=== PATIENT | female | born 1955 | race Caucasian/White ===

== ENCOUNTER 2020-12-23 11:15 | Outpatient (RCR) | payer MEDICARE, OTHER, SELFPAY ==
[2020-12-23] MEDS: COVID-19 VACC, MRNA(PFIZER)/PF 30 MCG/0.3 ML SYRINGE IM (09:12)
[2021-01-13] MEDS: COVID-19 VACC, MRNA(PFIZER)/PF 30 MCG/0.3 ML SYRINGE IM (09:04)
== END 2021-03-29 23:59 ==
LOC: IMMUN 11:15
PROVIDERS: PCP Preventive Medicine Occupational Medicine; Referring Provider Family Medicine; Visit Provider Family Medicine
DX: Z23 Encounter for immunization (principal)
CPT/HCPCS: 0001A; 0002A; 91300

== ENCOUNTER → 2022-05-20 | Outpatient (CLI) | payer MEDICARE, OTHER, SELFPAY | END | disposition home or self-care (01) | LOC: LABSPEC 10:15 | PROVIDERS: PCP Preventive Medicine Occupational Medicine; Visit Provider Otolaryngology | DX: J32.9 Chronic sinusitis, unspecified (principal) | CPT/HCPCS: 87070; 87077; 87205 ==

== ENCOUNTER → 2022-08-14 | Outpatient (CLI) | payer MEDICARE, OTHER, SELFPAY ==
--- NOTE | 2022-08-15 05:50 | PFTCOMP_ITS ---
COMPLETE PULMONARY FUNCTION TEST INTERPRETATION Brief HPI: Patient is a 67-year-old female, currently under the care of Dr. Huynh, who presents to [facility] for complete pulmonary function tests secondary to diagnosis of chronic cough. Respiratory therapist reports good effort and reproducible results. Interpretation: Forced expiration spirometry shows no large airways obstructive ventilatory defect with an FEV1 of 110% predicted. There is no significant bronchodilator response by strict ATS criteria. Spirograms are of good quality and plateau normally. The respiratory flow volume loop shows a normal pattern. Lung volumes by body plethysmography show a normal total lung capacity at 5.11 L, 115% predicted. All other lung volumes are within normal limits. Diffusion capacity by carbon monoxide is normal at 100% predicted. The airway resistance is normal. No previous pulmonary function tests were available for review. Impression: These pulmonary function tests are within normal limits
== END | disposition home or self-care (01) ==
LOC: PSN 10:29
PROVIDERS: PCP Preventive Medicine Occupational Medicine; Referring Provider Internal Medicine Critical Care Medicine; Visit Provider Internal Medicine Critical Care Medicine
DX: R05.3 Chronic cough (principal)
CPT/HCPCS: 94060; 94726; 94729

== ENCOUNTER → 2022-10-04 | Outpatient (CLI) | payer MEDICARE, OTHER, SELFPAY ==
--- NOTE | 2022-10-04 08:30 | PET_ITS ---
EXAMINATION: FDG PET-CT INDICATIONS: A 67-year-old female with history of pulmonary nodularity. COMPARISON EXAMINATION: None available INDEX LESION SIZE SUV INTERPRETATION Right upper lung, right upper lobe 1.2 (max) Quantitative criteria for viable neoplasm are not fulfilled, sequential radiologic investigation recommended TECHNIQUE: Following the intravenous administration of 12.94 mCi of F-18 deoxyglucose via the left antecubital fossa, multiplanar image acquisitions of the neck, chest, abdomen and pelvis to level of mid thigh, obtained at one hour post radiopharmaceutical administration contemporaneously interpreted with the current CT of the neck, chest, abdomen and pelvis, to level of mid thigh, dated 10/04/22 via coregistration reveals: BLOOD GLUCOSE LEVEL:?? 101 mg/dl?HEIGHT:?63 inches?WEIGHT: 165 lbs. FINDINGS: Head/Neck: There is no evidence of abnormal increased glucose metabolism in the pharyngeal mucosal space, parapharyngeal space, bilateral-lateral and anterior neck, hypopharynx and distribution of the laryngeal structures. The visualized portion of the cerebral cortical-subcortical structures demonstrate symmetric and preserved glucose metabolism. CHEST: Mild increased FDG concentration is defined in the right upper medial lung field, right upper lobe. The calculated maximal standard uptake value is 1.2. Prominent tracer concentration is noted in the descending thoracic aorta commensurate with activated leukocytes associated with atherosclerotic plaque formation. Pertinent chest CT findings are as follows. Bilateral axillary soft tissue densities with fatty hilus are non-glucose avid. There is atherosclerotic calcification defined in the thoracic aorta without evidence of dilatation-aneurysm formation. There are no additional parenchymal densities-nodules defined in the right and left hemithorax with quantitatively significant increased FDG uptake. Abdomen/Pelvis: Normal physiologic distribution of the radiopharmaceutical is apparent in the hepatic (3.8) and splenic parenchyma, both renal units, bladder and visualized intestinal tract. Diffuse radiopharmaceutical concentration is noted in all four quadrants of the abdomen and pelvis. Pertinent abdomen and pelvis CT findings are as follows. There is atherosclerotic calcification defined in the abdominal aorta without evidence of dilatation-aneurysm formation. Pelvic arterial calcification is observed. The uterus appears surgically absent. Subcentimeter bilateral inguinal soft tissue densities demonstrate no evidence of quantitatively significant increased FDG uptake. Skeletal: There are no well-defined sclerotic-lytic changes manifest on review of the appendicular-axial skeletal structures. Degenerative changes are noted in the cervical, thoracic and lumbar spine without evidence of increased radiopharmaceutical concentration. PET/PET/CT Tumor Base -Thigh Init IMPRESSION: 1. NEGATIVE EXAMINATION. There is no definitive quantitative scintigraphic evidence of viable neoplasm. 2. Metabolic, morphologic stability may be ensured in the right upper hemithorax parenchymal density with repeat FDG PET-CT imaging and/or CT of the chest in 3-6 months if clinically indicated. Electronic Signature Triston Vásquez D.O. Accurate Quantification of SUVs for this report are calculated using the exclusive [employer]. ([place]. Patent No. [id number] B2 [phone] [place] patent [phone]). Standardization and correction of the FDG SUV metric via [employer] technology allow for vendor non-specific objective quantitative examination comparison and optimization of the sensitivity and specificity of the FDG PET-CT examination. Electronically Signed: Triston Vásquez, at 23:04 EST ,
== END | disposition home or self-care (01) ==
LOC: ONC 08:09
PROVIDERS: PCP Preventive Medicine Occupational Medicine; Referring Provider Nurse Practitioner Acute Care; Visit Provider Nurse Practitioner Acute Care
DX: R91.8 Other nonspecific abnormal finding of lung field (principal)
CPT/HCPCS: 78815; A9552

== ENCOUNTER → 2022-12-22 | Outpatient (CLI) | payer MEDICARE, OTHER, SELFPAY ==
--- NOTE | 2022-12-22 13:56 | CT_ITS ---
STUDY: CT CHEST WITHOUT CONTRAST REASON FOR EXAM: Female, 67 years old. Mass follow up RADIATION DOSAGE (If Supplied By Facility): CTDIvol = ( 9.38 ) mGy, DLP = ( 279.34 ) mGycm TECHNIQUE: Transaxial imaging was performed without the administration of intravenous contrast material. Multiplanar coronal and sagittal images were reformatted. Individualized dose optimization techniques were used for this CT. COMPARISON: Comparison is made with prior PET scan dated October 04, 2022. FINDINGS: CHEST There is a 1.4 cm x 1.1 cm noncalcified nodule in the medial aspect of the right upper lobe as seen on axial image #35. There is no demonstrated pleural abnormality. There are calcifications of the coronary arteries. There are multiple small lymph nodes within the mediastinum, which are normal in size and morphology most compatible with reactive lymph hyperplasia. Normal hilar regions. Normal unenhanced pulmonary arteries. There is atherosclerotic calcification of the aortic arch. There are multi-level degenerative changes of the thoracic spine. There is no demonstrated abnormality of the visualized upper abdomen. CT/Chest without Contrast IMPRESSION: 1.4 cm x 1.17 noncalcified nodule in the medial aspect of the right upper lobe. On the prior PET scan, this was not FDG avid. A repeat CT scan in 3 months is recommended. Electronically Signed: Cristino England MD at 15:13 EST ,
== END | disposition home or self-care (01) ==
LOC: CT 13:49
PROVIDERS: PCP Preventive Medicine Occupational Medicine; Referring Provider Nurse Practitioner Acute Care; Visit Provider Nurse Practitioner Acute Care
DX: R91.8 Other nonspecific abnormal finding of lung field (principal)
CPT/HCPCS: 71250

== ENCOUNTER → 2023-07-09 | Outpatient (CLI) | payer MEDICARE, OTHER, SELFPAY ==
--- NOTE | 2023-07-09 13:03 | CT_ITS ---
INDICATION: Lung Nodule EXAMINATION: CT CHEST WITHOUT CONTRAST - CT Chest W/O Contrast Injection TECHNIQUE: Helically acquired images were obtained of the chest. A radiation dose optimization technique was used for this scan. IV Contrast dosage and agent: None. RADIATION DOSAGE (If Supplied By Facility): CTDIvol = ( 6.55 ) mGy, DLP = ( 231.56 ) mGycm COMPARISON: Prior examination of 12/22/2022. FINDINGS: LUNGS, PLEURA AND LARGE AIRWAYS: 1.6 x 1.1 x 2 cm lobulated mass in the right upper lobe unchanged or slightly larger in size since previous examination. Previously measured 1.6 x 1.1 x 1.5 cm. No pleural effusion or thickening. No pneumothorax. THYROID: No thyroid lesions. HEART AND PERICARDIUM: Heart size is normal. No pericardial effusion. CORONARY ARTERIES: Mild calcifications. VESSELS: Thoracic aorta is not dilated. MEDIASTINUM AND TOÑO: Few small normal-sized mediastinal nodes unchanged. No evidence of adenopathy. Esophagus is unremarkable. No hiatal hernia. UPPER ABDOMEN: No acute pathology. BONES: Degenerative changes of the spine. CT/Chest without Contrast IMPRESSION: Persistent right upper lobe nodule unchanged or slightly larger in size than the previous examination. Malignancy cannot be excluded. Correlation with repeat PET scan is recommended. Otherwise follow-up examination in 3 months. Electronically Signed: Cesar Almanza MD at 16:09 EDT ,
== END | disposition home or self-care (01) ==
LOC: CT 13:02
PROVIDERS: PCP Preventive Medicine Occupational Medicine; Referring Provider Internal Medicine Critical Care Medicine; Visit Provider Internal Medicine Critical Care Medicine
DX: R91.1 Solitary pulmonary nodule (principal)
CPT/HCPCS: 71250

== ENCOUNTER → 2023-07-31 | Outpatient (CLI) | payer MEDICARE, OTHER, SELFPAY ==
[2023-07-31 09:45] LABS: Platelet Count 269 K/mm3 (150-450)
[2023-07-31 10:01] LABS: Prothrombin Time (Protime)PT. 12.8 SECONDS (11.7-14.9)
== END | disposition home or self-care (01) ==
LOC: LAB 08:58
PROVIDERS: PCP Preventive Medicine Occupational Medicine; Referring Provider Nurse Practitioner Acute Care; Visit Provider Nurse Practitioner Acute Care
DX: I48.91 Unspecified atrial fibrillation (principal); R05.3 Chronic cough; R06.00 Dyspnea, unspecified
CPT/HCPCS: 36415; 85049; 85610; 85730

== ENCOUNTER → 2023-08-14 | Outpatient (CLI) | payer MEDICARE, OTHER, SELFPAY ==
[2023-08-14] VITALS (11 sets, daily range): BP systolic 109–190; BP diastolic 53–97; PULSE 54–84; RESP 12–18; TEMP 36.8; O2SAT 91–98; BMI 28.9
--- NOTE | 2023-08-14 08:10 | CT_ITS ---
PROCEDURE: CT GUIDED CORE NEEDLE BIOPSY OF A right upper lobe LUNG LESION INDICATION: Female, 68 years old. RUST PHYSICIAN: Dr. Tomás Croft CONSENT: Written informed consent was obtained having explained the risks, benefits and alternatives in detail with the patient who accepted the risks and agreed to proceed. Laboratory review and clinical assessment was performed. CONSCIOUS SEDATION PROTOCOL: The Drugs used were: 2 mg Versed, IV., and 50 mcg Fentanyl, IV. The sedation time was: 15 minutes. The conscious sedation protocol was independently monitored. RADIATION DOSAGE (If Supplied By Facility): CTDIvol = ( 20 ) mGy, DLP = ( 327.18 ) mGycm Individualized dose optimization techniques were used for this CT. TECHNIQUE: The patient was placed in the prone position. A noncontrast CT was performed to localize the lesion in the right upper . The skin surface was prepped and draped in a sterile fashion. 1% lidocaine was used for local anesthesia. Using CT guidance, a 20-gauge coaxial biopsy device was advanced to the periphery of the lesion. A total of 4 core specimens were obtained. The specimens were placed in a formalin solution. A post procedure CT demonstrated no adverse sequelae or pneumothorax. The patient tolerated the procedure well without adverse event. A negative biopsy does not exclude malignancy. Further imaging or clinical followup based on patient condition and degree of clinical suspicion for malignancy. Suggest rebiopsy, if biopsy results do not match with clinical scenario. CT/Biopsy/Inj or Needle Placement IMPRESSION: 1. CT directed core needle biopsy of the right upper lobe pulmonary nodule using CT image guidance with image documentation as described. Pathology results are pending. 2. Conscious Sedation protocol utilized with independent monitoring. Electronically Signed: Cristino England MD at 10:27 EDT ,
[2023-08-14 08:22] LABS: Absolute Lymphocyte Count 2.13 X10^3/uL (0.83-4.51); Absolute Neutrophil Count 3.6 X10^3/uL (2.0-7.7); Basophil# 0.05 X10^3/uL; Basophil% 0.7 % (0-1); Eosinophil# 0.37 X10^3/uL; Eosinophils% 5.4 % (0-5); Hematocrit 43.7 % (37-47); Hemoglobin 14.3 g/dL (12.0-15.0); Lymphocyte # 2.13 X10^3/ul (0.83-4.51); Lymphocyte % 31.3 % (19-41); Mean Corp Hgb Conc 32.7 g/dL (32-36); Mean Corpuscular Hgb 29.7 pg (27.0-32.0); Mean Corpuscular Volume 90.7 fL (81-99); Mean Platelet Vol. 9.9 fl (6.2-12.0); Monocyte# 0.62 X10^3/uL; Monocyte% 9.1 % (0-10); NRBC Flagged by Analyzer 0 % (0-5); Neutrophil # 3.62 X10^3/uL (2.7-7.7); Neutrophil % 53.2 % (47-70); Platelet Count 222 K/mm3 (150-450); RBC Distribution Width CV 13.5 % (11.6-14.6); RBC Distribution Width SD 45.2 fl (35.1-43.9); Red Blood Count 4.82 M/mm3 (4.2-5.4); White Blood Count 6.8 K/mm3 (4.4-11.0)
[2023-08-14 08:30] LABS: International Normalized Ratio 0.9; Prothrombin Time (Protime)PT. 12.5 SECONDS (11.7-14.9)
[2023-08-14] MEDS: 0.9% Normal Saline (250mL Bag) 250 ML 15 ML IV (09:08)
[2023-08-14] MEDS: Midazolam 2 MG/2 ML Syringe IV (09:08)
[2023-08-14] MEDS: fentaNYL 100 MCG/2 ML Ampul IV (09:10)
[2023-08-14] MEDS: Lidocaine 2% (20 ml mdv) 20 ML Vial INFILT (09:18)
--- NOTE | 2023-08-14 09:44 | ASPIGT_PTH ---
PATIENT: WENDI WAGNER LOC: CT U#:[id number] AGE/SX: 68/F ROOM: RE08/14/[address]: SHILA Jensen : 1955 BED: DIS: 08/14/2023 SPEC #: [id number] RECD: 08/14/23 09:44 STATUS: REVA RELynne #: [id number] ANGIE: 08/14/23 09:[address]: Yola Qureshi NP DEPT: SURGICAL PATHOLOGY RECD BY: Evelyn Pittman ENTERED: 08/14/23 09:45 SP TYPE: ASP RAD OTHR DR: MD Dr. Darrick Knutson DO Tissues: Lung, NOS Procedures: FNA Specimen Adequacy Special Stain Group II Surgery Specimen Level IV Imprint (control) HEADER OPERATION: Right lung mass, CT-guided core biopsy PRE-OP DIAGNOSIS: Right lung mass TISSUE SUBMITTED: Right lung mass 20-gauge core x4 MICROSCOPIC DIAGNOSIS Right lung mass, CT-guided core biopsy: Negative for malignancy. See comment. IVET:[email or web address] 08/15/2023 COMMENT The specimen is evaluated at the time of biopsy by Dr. Solorio. Immediate Evaluation = Negative for malignant cells. Correlation with clinical, radiologic findings and appropriate follow up are necessary. Re-biopsy is suggested if clinically indicated. Case has been reviewed in consultation with Dr. Camacho who concurs with the above diagnosis. IDC:AM MICROSCOPIC DESCRIPTION Slides are reviewed. GROSS DESCRIPTION Received in fixative is one container labeled with the patient's name and designated right upper lobe lung biopsy. The specimen consists of multiple irregular fragments of lowe soft tissue that in aggregate measure 0.5 x 0.1 x <0.1 cm. The specimen is totally submitted in one cassette. Two touch imprints are prepared at the time of core biopsy. / Vero 08/14/2023 TC:5 CPT: 97559, [id number]
--- NOTE | 2023-08-14 09:45 | RAD_ITS ---
STUDY: X-RAY CHEST REASON FOR EXAM: Female, 68 years old. Post lung biopsy immediate -- Immediately post lung biopsy TECHNIQUE: AP inspiration and expiration views COMPARISON: None. FINDINGS: No evidence of pneumothorax on the immediate post right lung biopsy radiographs. RAD/Chest Insp/Exp 2 View IMPRESSION: No evidence of pneumothorax on the immediate post right lung biopsy radiographs. Electronically Signed: Cristino England MD at 14:14 EDT ,
--- NOTE | 2023-08-14 10:27 | PCM.OP.PRO ---
Procedure Report Date of Procedure: 08/14/23 Assessment & Plan Assessment/Plan (1) Lung mass: PLAN: PROCEDURE: CT GUIDED CORE NEEDLE LUNG BIOPSY ORDERING PROVIDER: Yola Qureshi CNP INDICATION: Female, 68 years old. Right upper lobe mass. PROVIDER: ILEANA Crawley CONSENT: Written informed consent was obtained having explained the risks, benefits and alternatives in detail with the patient who accepted the risks and agreed to proceed. Laboratory review and clinical assessment was performed. PRE-PROCEDURE SEDATION ASSESSMENT: Current history and physical dictated by referring physician and reviewed. No clinical changes since date of exam. Patient has an ASA Class of 1. PROCEDURAL SEDATION PROTOCOL: The Drugs used were: 2 mg Versed, IV, and 50 mcg Fentanyl, IV. The sedation time was: 27 minutes, starting at 0908 and terminated at 0935. The procedural sedation protocol was independently monitored by the department nurse. RADIATION DOSAGE (If Supplied By Facility): CTDIvol = 232.72 mGy, DLP = 327.18 mGycm Individualized dose optimization techniques were used for this CT. TECHNIQUE: The patient was placed in a prone position. A noncontrast CT was performed to localize the lesion in the right upper lobe. The skin surface was prepped and draped in a sterile fashion. 2% lidocaine was used for local anesthesia. Using CT guidance, a 20-gauge coaxial biopsy device was advanced to the periphery of the lesion. A total of 4 core specimens were obtained. Specimens were microscopically reviewed by pathology in the CT suite and placed in formalin solution. The biopsy needle was removed. A sterile occlusive dressing was applied to the biopsy site. The patient tolerated the procedure well. An immediate chest xray was ordered, per protocol. A negative biopsy does not exclude malignancy. Further imaging or clinical followup based on patient condition and degree of clinical suspicion for malignancy. Suggest rebiopsy, if biopsy results do not match with clinical scenario. IMPRESSION: 1. CT directed core needle biopsy of right upper lobe mass using CT image guidance with image documentation as described. Pathology results are pending. 2. Procedural Sedation protocol utilized with independent monitoring by the department nurse. Procedures Radiology Radiology CT Procedures: [id number] Biopsy Lung
--- NOTE | 2023-08-14 11:40 | RAD_ITS ---
STUDY: X-RAY CHEST REASON FOR EXAM: Female, 68 years old. Post lung biopsy 2 hr TECHNIQUE: AP inspiration and expiration views. COMPARISON: Comparison is made with prior study done earlier today. FINDINGS: No evidence of pneumothorax on the two-hour delayed post right lung biopsy radiographs. RAD/Chest Insp/Exp 2 View IMPRESSION: No evidence of pneumothorax on the two-hour delayed post right lung biopsy radiographs. Electronically Signed: Cristino England MD at 11:23 EDT ,
== END | disposition home or self-care (01) ==
PROVIDERS: Radiology Diagnostic Radiology; PCP Preventive Medicine Occupational Medicine; Referring Provider Nurse Practitioner Acute Care; Visit Provider Nurse Practitioner Acute Care
DX: R91.8 Other nonspecific abnormal finding of lung field (principal)
CPT/HCPCS: 32408; 36415; 71046; 77012; 85025; 85610; 85730; 88172; 88305; 88313; 99156; J7050; A4216

== ENCOUNTER → 2024-01-02 | Outpatient (CLI) | payer MEDICARE, OTHER, SELFPAY ==
--- NOTE | 2024-01-02 07:43 | CT_ITS ---
STUDY: CT CHEST WITHOUT CONTRAST REASON FOR EXAM: Female, 68 years old. Lung mass RADIATION DOSAGE (If Supplied By Facility): CTDIvol = ( 7.98 ) mGy, DLP = ( 311.65 ) mGycm TECHNIQUE: Transaxial imaging was performed without the administration of intravenous contrast material. Multiplanar coronal and sagittal images were reformatted. Individualized dose optimization techniques were used for this CT. COMPARISON: Comparison is made with prior study dated July 09, 2023. FINDINGS: CHEST There is a stable 1.6 cm x 1 cm mildly lobulated nodule in the medial anterior right upper lobe as seen on axial image #33 and coronal image #62. There is no demonstrated pleural abnormality. There are calcifications of the coronary arteries. Normal mediastinum. Normal hilar regions. Normal unenhanced pulmonary arteries. There is atherosclerotic calcification of the aortic arch. There are degenerative changes of the thoracic spine. There is no demonstrated abnormality of the visualized upper abdomen. CT/Chest without Contrast IMPRESSION: Stable examination demonstrating a 1.6 cm x 1 cm lobulated nodule in the medial anterior right upper lobe. Electronically Signed: Cristino England MD at 14:54 EDT ,
--- OUTSIDE RECORDS SUMMARY | 2024-01-02 08:01 | XMS RPT_ITS | CCD ---
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 Name Role Phone OZ GALEANO DO Primary Care Physician [phone] OZ GALEANO DO Primary Care Unavailable OZ GALEANO DO Attending Unavailable OZ GALEANO DO Attending Unavailable OZ GALEANO DO Primary Care Unavailable Allergies Allergy Classification Reported Allergen(s) Allergy Type Date of Onset Reaction(s) Facility (7 sources) Alendronate; Translations: [alendronate] Drug Allergy Muscle pain (finding) [facility] Work Phone: Medications Current Medications Medication Drug Class(es) Dates Sig (Normalized) Sig (Original) Advair HFA 230 mcg-21 mcg/inh inhalation aerosol (2 sources) Start: 09-11-2022 take 2 puff(s) by inhalation twice daily Advair HFA 230 mcg-21 mcg/inh inhalation aerosol 2 PUFF INHALED TWICE A DAY Start Date: 09/11/22 Status: Ordered [id number] 200 actuat albuterol 0.09 mg/actuat metered dose inhaler (1 source) beta2-Adrenergic Agonist Start: 07-05-2022 End: 08-04-2022 take 2 puff(s) by inhalation every four hours as needed for wheezing ProAir HFA MDI (90 mcg/inh) inhalation aerosol 2 puff(s), Inhalation, q4h, PRN as needed for wheezing, # 18 gram(s), 0 Refill(s), Pharmacy: [facility]/pharmacy #[id number], COVID, 157.5, cm, 07/05/22 14:01:00 EDT, Height, kg, 07/05/22 14:01:00 EDT, Dosing Weight Start Date: 07/05/22 Stop Date: 08/04/22 Status: Ordered Albuterol (Eqv-ProAir HFA) 90 mcg/inh inhalation aerosol (1 source) Start: 05-23-2023 Albuterol (Eqv-ProAir HFA) 90 mcg/inh inhalation aerosol 0 Refill(s) Start Date: 05/23/23 Status: Ordered amoxicillin 500 mg oral capsule (1 source) Penicillin-class Antibacterial Start: 12-16-2021 End: 12-26-2021 amoxicillin 500 mg oral capsule Dose : 500 mg = 1 cap(s), Oral, TID, # 30 cap(s), 0 Refill(s) Start Date: 12/16/21 Stop Date: 12/26/21 Status: Ordered aspirin 81 mg oral tablet (7 sources) Platelet Aggregation Inhibitor, Nonsteroidal Anti-inflammatory Drug Start: 02-02-2014 aspirin 81 mg oral tablet (chewable) Dose : 81 mg = 1 tab(s), Oral, Daily, 0 Refill(s) Start Date: 02/02/14 Status: Ordered atorvastatin 10 mg oral tablet (7 sources) HMG-CoA Reductase Inhibitor Start: 11-26-2023 atorvastatin 10 mg oral tablet Dose : 10 mg = 1 tab(s), Oral, qDay, # 90 tab(s), 3 Refill(s), Pharmacy: [facility]/pharmacy #[id number], 158, cm, 09/21/23 13:55:00 EST, Height, kg, 09/21/23 13:55:00 EST, Dosing Weight Start Date: 11/26/23 Status: Ordered Completed/Discontinued Medications Medication Drug Class(es) Dates Sig (Normalized) Sig (Original) fluticasone propionate 0.05 mg/actuat metered dose nasal spray (4 sources) Corticosteroid Start: 05-25-2023 End: 06-24-2023 take 1 dose nasal route twice daily Flonase 50 mcg/inh nasal spray Dose = 1 spray(s), Nostril, each, BID, # 16 gram(s), 0 Refill(s), Pharmacy: [facility]/pharmacy #[id number], Rhinitis, 158, cm, 05/25/23 10:01:00 EDT, Height, kg, 05/25/23 10:01:00 EDT, Dosing Weight Start Date: 05/25/23 Stop Date: 06/24/23 Status: Ordered Problems Problem Classification Problem Date Documented Date Episodic/Chronic Chronic obstructive pulmonary disease and bronchiectasis (1 source) Bronchitis 09-21-2023 Episodic Disorders of lipid metabolism (7 sources) Hyperlipidemia; Translations: [Mixed hyperlipidemia] 08-30-2020 Chronic Essential hypertension (7 sources) Essential hypertension 09-15-2019 Chronic Mood disorders (7 sources) Depressive disorder 02-27-2020 Chronic Neoplasms of unspecified nature or uncertain behavior (8 sources) Neoplasm of uncertain behavior of back; Translations: [Neoplasm of uncertain behavior of skin of chest] 12-05-2021 Episodic Other bone disease and musculoskeletal deformities (7 sources) Disorder of bone 02-27-2020 Episodic Other connective tissue disease (7 sources) Primary fibromyalgia syndrome 02-27-2020 Episodic Other hereditary and degenerative nervous system conditions (7 sources) Hereditary essential tremor 12-05-2021 Chronic Other lower respiratory disease (2 sources) Chronic cough 09-11-2022 Episodic Other lower respiratory disease (3 sources) Nodule of lung 09-19-2022 Episodic Other non-traumatic joint disorders (7 sources) 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 Other screening for suspected conditions (not mental disorders or infectious disease) (2 sources) Encounter for screening mammogram for malignant neoplasm of breast; Translations: [Encounter for screening mammogram for malignant neoplasm of breast] Onset: 10-10-2023 Episodic Residual codes; unclassified (1 source) Family history of malignant neoplasm of thoracic cavity structure 12-17-2023 Episodic Unclassified (8 sources) Patient encounter status 08-30-2020 Results Test Name Value Interpretation Reference Range Facil ity Encounters Encounter Date Encounter Type Care Provider Facility Start: 12-18-2023 End: 12-18-2023 Patient encounter procedure OZ GALEANO DO [facility] Start: 10-10-2023 End: 10-11-2023 ambulatory OZ WALESKA Facility:B Start: 10-10-2023 End: 10-10-2023 Patient encounter procedure OZ GALEANO DO [facility] Start: 11-22-2022 End: 11-23-2022 ambulatory OZ GALEANO DO Facility:[facility] Start: 11-22-2022 End: 11-22-2022 Patient encounter procedure OZ WOODALLY [facility] Start: 09-13-2022 End: 09-13-2022 Patient encounter procedure MILAN WHITE MD [facility] Start: 09-11-2022 End: 09-11-2022 Patient encounter procedure MILAN WHITE MD [facility] Start: 07-27-2022 End: 07-27-2022 Patient encounter procedure OZ WOODALLMarielena CARMONA [facility] Start: 12-16-2021 End: 12-20-2021 Outreach Lab OZ GALEANO DO [facility] Procedures Date Procedure Procedure Detail Performing Clinician Colonoscopy OZ GALEANO DO Immunizations Immunization Date Immunization Notes Care Provider [facility] 07-09-2023 influenza virus vaccine, unspecified formulation OZ GALEANO DO [facility] 08-17-2022 influenza virus vaccine, unspecified formulation OZ WALESKA DO [facility] 08-17-2022 SARS-CoV-2 (CV19)[id number] bivalent vac OZ GALEANO DO [facility] 08-02-2021 SARS-CoV-2 mRNA (tozinameran) vaccine OZ GALEANO DO [facility] Payers Date Payer Category Payer Medicare [id number] 2022 Unknown [id number] 1955 Unknown [id number] 1955 Unknown [id number] Social History Date Type Detail Facility Start: 09-15-2019 Never smoked t oblilly (finding) [facility] Sex Assigned At Female [facility] Clinical Note 10-10-2023 Note Date & Type Note Facility 10-10-2023 Note ORIGINAL EXAMINATION: BONE DENSITOMETRY 10/10/2023 10:45 am TECHNIQUE: A bone density dual x-ray absorptiometry (DEXA) scan was performed of the lumbar spine and left hip on a [employer] system. COMPARISON: 03/24/2019. HISTORY: ORDERING SYSTEM PROVIDED HISTORY: Reason for Exam: Osteoporosis Screening Postmenopausal FINDINGS: LEFT HIP: The bone mineral density in the total hip is measured at 0.757 g/cm2 corresponding to a T-score of -1.5. This is within the osteopenic range by WHO criteria. Change from prior: No statistically significant change. The bone mineral density of the femoral neck is measured at 0.569 g/cm2 corresponding to a T-score of -2.5. This is within the osteoporotic range by WHO criteria. Lumbar spine: The bone mineral density of the lumbar spine, L1 through L4 is measured at 0.948 g/cm2 corresponding to a T-score of -0.9. This is within the normal range by WHO criteria. Change from prior: No statistically significant change. 10 year probability of fracture: FRAX not reported as some T-scores for the total hip, spine or femoral neck are at or below -2.5. IMPRESSION: Osteoporosis by WHO criteria. Interpreted by: Ivette Leonard Preliminary Report By: Ivette Leonard Electronically signed By Ivette Leonard Dictated Date: 10/10/2023 10:58:28 AM Prelim Date: 10/10/2023 11:01:16 AM Sign Date: 10/10/2023 11:01:16 AM Ordering Provider: OZ GALEANO [facility] Evaluation + Plan note Note Date & Type Note Facility Evaluation + Plan note Future Appointments Appointment Date:12/26/2021 02:00:00 PM Scheduled Provider: Location:[facility] Appointment Type:PC Nurse [facility] Evaluation + Plan note Note Date & Type Note Facility Evaluation + Plan note Future Appointments Appointment Date:05/17/2023 09:00:00 AM Scheduled Provider:OZ GALEANO DO Location:[facility] Appointment Type:PC OV [facility] Evaluation + Plan note Radiology Note Date & Type Note Facility Evaluation + Plan note Future Appointments Appointment Date:11/08/2023 09:00:00 AM Scheduled Provider:OZ GALEANO DO Location:[facility] Appointment Type:PC OV Future Scheduled TestsBD Bone Density DEXA Axial Skeleton 09/25/23 [facility] Evaluation + Plan note Radiology Note Date & Type Note Facility Evaluation + Plan note Future Appointments Appointment Date:06/16/2024 09:30:00 AM Scheduled Provider:OZ GALEANO DO Location:[facility] Appointment Type:PC OV Follow Up Future Scheduled TestsBD Bone Density DEXA Axial Skeleton 09/25/23 [facility] Hospital course Narrative Note Date & Type Note Facility Hospital course Narrative No data available for this section [facility] Hospital Discharge instructions Note Date & Type Note Facility Hospital Discharge instructions No data available for this section [facility] Progress note Note Date & Type Note Facility Progress note No data available for this section [facility] Summary Purpose Family History No Family History Records Found Advance Directives No Advanced Directives Records Found Additional Source Comments Care Team (unrecognized sect ion and content) Care Team Personnel Name: OZ GALEANO DO Position: P4 Physician - Primary Care Med Service: Active Provider Member Role: Primary Care Physician Address: Address: [address], [place] [address] Care Team Related Persons Name: MEL WAGNER Address: Home [address] [place], [place] [id number] Care Team Personnel Name: OZ GALEANO DO Position: P4 Physician - Primary Care Member Role: Primary Care Physician Address: Address: [address], [place] [id number] [place] [address] Care Team Related Persons Name: MEL WAGNER Address: Home [address] [place], [place] [id number] Care Team Personnel Name: OZ GALEANO DO Position: P4 Physician - Primary Care Member Role: Primary Care Physician Address: Address: [facility] [address] Care Team Related Persons Name: MEL WAGNER Address: Home [address], [place] [id number] Care Team Personnel Name: OZ GALEANO DO Position: P4 Physician - Primary Care Member Role: Primary Care Physician Address: Address: [address], [place] [id number] [place] [address] Care Team Related Persons Name: MEL WAGNER Address: Home [address] [place], [place] [id number] Patient Care team informatio n (unrecognized section and content) Care Team Personnel Name: OZ GALEANO DO Position: P4 Physician - Primary Care Member Role: Primary Care Physician Address: Address: [address] [place] [address] [place] Care Team Related Persons Name: MEL WAGNER Address: Home [address] [place], [place] [id number] Care Team Personnel Name: OZ GALEANO DO Position: P4 Physician - Primary Care Member Role: Primary Care Physician Address: Address: [facility] [address] Care Team Related Persons Name: MEL WAGNER Address: Home [address] [place], [place] [id number] INFORMATION SOURCE (unrecogn ized section and content) FOR RECORDS PERTAINING TO PATIENTS WHO ARE OR HAVE BEEN ENROLLED IN A CHEMICAL DEPENDENCY/SUBSTANCEABUSE PROGRAM, SOME INFORMATION MAY BE OMITTED. This clinical summary was aggregated from multiple sources. Caution should be exercised in using it in the provision of clinical care. This summary normalizes information from multiple sources, and as a consequence, information in this document may materially change the coding, format and clinical context of patient data. In addition, data may be omitted in some cases. CLINICAL DECISIONS SHOULD BE BASED ON THE PRIMARY CLINICAL RECORDS. [facility] [employer] [facility]. provides no warranty or guarantee of the accuracy or completeness of information in this document.
== END | disposition home or self-care (01) ==
LOC: CT 07:40
PROVIDERS: PCP Preventive Medicine Occupational Medicine; Referring Provider Nurse Practitioner Acute Care; Visit Provider Nurse Practitioner Acute Care
DX: R91.8 Other nonspecific abnormal finding of lung field (principal)
CPT/HCPCS: 71250

== ENCOUNTER → 2024-03-29 | Outpatient (CLI) | payer MEDICARE, OTHER, SELFPAY ==
--- NOTE | 2024-03-29 09:46 | CT_ITS ---
EXAM: CT CHEST WITHOUT INTRAVENOUS CONTRAST CLINICAL INDICATION: lung mass TECHNIQUE: Helically acquired images were obtained of the chest without intravenous contrast. This CT exam was performed using one or more of the following dose reduction techniques: automated exposure control, adjustment of the mA and/or kV according to patient size, and/or use of iterative reconstruction technique. RADIATION DOSE: CTDIvol = 13.10 mGy, DLP = 415.85 mGy-cm COMPARISON: 01/02/2024. PET CT 10/04/2022. FINDINGS: LUNGS AND PLEURAL SPACES: Right upper lobe nodule measuring 1.1 x 1.4 x 1.1 cm in the apical segment. This is unchanged in size compared with the previous examinations. No pleural effusion or thickening. No pneumothorax. HEART: Unremarkable. Heart size is normal. No pericardial effusion. No significant coronary artery calcifications. MEDIASTINUM: Unremarkable. No mediastinal or hilar adenopathy. Esophagus is unremarkable. No hiatal hernia. THYROID: Unremarkable. No thyroid lesions. BONES/JOINTS: Unremarkable. No suspicious lytic or blastic abnormality. VASCULATURE: Unremarkable. Thoracic aorta is non-dilated. CT/Chest without Contrast IMPRESSION: Right upper lobe nodule measuring 1.1 x 1.4 x 1.1 cm in the apical segment. This is unchanged in size compared with the previous examinations. For high-risk patients (smoking history or other known risk factors) recommend follow-up chest CT at 12-18 months. If unchanged, no further follow-up. Electronically Signed: Mansoor Garza MD at 0:56 EDT ,
== END | disposition home or self-care (01) ==
LOC: CT 09:40
PROVIDERS: PCP Preventive Medicine Occupational Medicine; Referring Provider Nurse Practitioner Acute Care; Visit Provider Nurse Practitioner Acute Care
DX: R91.8 Other nonspecific abnormal finding of lung field (principal)
CPT/HCPCS: 71250

== ENCOUNTER → 2025-01-30 | Outpatient (CLI) | payer MEDICARE, OTHER, SELFPAY | END | disposition home or self-care (01) | LOC: PSN 09:30 | PROVIDERS: PCP Preventive Medicine Occupational Medicine; Referring Provider Nurse Practitioner Family; Visit Provider Nurse Practitioner Family | DX: J45.20 Mild intermittent asthma, uncomplicated (principal) | CPT/HCPCS: 94060; 94726; 94729 ==

== ENCOUNTER → 2025-03-23 | Outpatient (CLI) | payer MEDICARE, OTHER, SELFPAY ==
--- NOTE | 2025-03-23 08:03 | CT_ITS ---
PROCEDURE: CHEST WITHOUT CONTRAST 03/23/2025 REASON FOR EXAM: FOLLOW LUNG NODULE TECHNIQUE: Chest CT without contrast. Coronal and Sagittal reconstruction series were provided. One or more dose reduction techniques were used (e.g., Automated exposure control, adjustment of the mA and/or kV according to patient size, use of iterative reconstruction technique RADIATION DOSE SUMMARY: CTDlvol: 11.45 mGy DLP: 394 mGycm COMPARISON: 03/30/2024. FINDINGS: No significant change in the size or appearance of the previously described 1.4 x 1.1 x 1.1 cm nodule in the apical segment of the right upper lobe. Unchanged mild cardiomegaly. Moderate diffuse spondylosis. Unchanged mild coronary artery calcifications. Normal unenhanced main pulmonary artery and right and left pulmonary arteries. Normal bilateral peripheral pulmonary arteries. Normal thoracic aorta and visualized great vessels. There is no demonstrated aortic aneurysm. Normal pericardium. Normal mediastinum. Normal hilar regions. Normal visualized trachea and bronchi. Normal pleura. Normal visualized upper abdomen. CT/Chest without Contrast IMPRESSION: Coronary artery calcification (CAC) is is present No significant change in the size or appearance of the previously described 1.4 x 1.1 x 1.1 cm nodule in the apical segment of the right upper lobe. Unchanged mild cardiomegaly. Moderate diffuse spondylosis. Unchanged mild coronary artery calcifications. Reading Location[facility]
== END | disposition home or self-care (01) ==
LOC: CT 08:03
PROVIDERS: PCP Preventive Medicine Occupational Medicine; Referring Provider Nurse Practitioner Acute Care; Visit Provider Nurse Practitioner Acute Care
DX: R91.1 Solitary pulmonary nodule (principal)
CPT/HCPCS: 71250